=== PATIENT | female | born 1965 | race Two or more races ===

== ENCOUNTER 2023-07-17 10:37 | Outpatient (CLI) | payer OTHER ==
[2023-07-17] MEDS ORDERED: NORVASC2.5 M1 (13:54)
== END 2023-07-17 10:50 | disposition home or self-care (01) ==
LOC: RAD 10:37
PROVIDERS: ATTEND Obstetrics & Gynecology Gynecologic Oncology
DX: G89.3 Neoplasm related pain (acute) (chronic) (principal); R97.8 Other abnormal tumor markers; R97.0 Elevated carcinoembryonic antigen [CEA]; R97.1 Elevated cancer antigen 125 [CA 125]; Z01.818 Encounter for other preprocedural examination; C50.919 Malignant neoplasm of unspecified site of unspecified female breast; N85.02 Endometrial intraepithelial neoplasia [EIN]; N95.1 Menopausal and female climacteric states

== ENCOUNTER 2024-08-19 09:59 | Emergency (ER) | payer OTHER ==
[~2024-08-19] VITALS: Ht 160 cm; Wt 81.6 kg
[~2024-08-19 09:59] MED LIST: NORVASC2.5 M1
[2024-08-19] MEDS ORDERED: 0.9 % SODIUM CHLORIDE 1,000 ML IV STA (12:39)
[2024-08-19] MEDS ORDERED: ONDANSETRON HCL 2 MG/ML VIAL IV STA (12:39)
[2024-08-19] MEDS ORDERED: FAMOTIDINE/PF 20 MG in 0.9 % SODIUM CHLORIDE 8 ML IV PUSH STA (12:40)
[2024-08-19] MEDS ORDERED: ONDANSETRON HCL 2 MG/ML VIAL ONE (17:33)
[2024-08-19] MEDS ORDERED: FAMOTIDINE/PF 20 MG/2 ML VIAL ONE (17:34)
[2024-08-19 18:24] LABS: CREATININE SERUM 0.58 mg/dL (0.55-1.02); GFR 106.77; POTASSIUM 3.98 mEq/L (3.5-5.1)
[2024-08-19 19:50] LABS: BASO % 0.2 % (0.1-1.2); EOS % 0.2 % (0.7-7.0); HEMATOCRIT 42.7 % (34.1-44.9); HEMOGLOBIN 14.4 g/dL (11.2-15.7); LYMPH % 33.9 % (19.3-53.1); MEAN CORPUSCULAR HEMOGLOBIN 28.6 pg (25.6-32.2); MONO % 12.5 % (4.7-12.5); PLATELET COUNT 278 K/uL (163-369); RED BLOOD COUNT 5.03 M/uL (3.93-5.22)
[2024-08-19 20:08] LABS: PH,URINE 5.5 (5.0-8.0); URINE APPEARANCE Clear; URINE BILIRRUBIN Negative (NEGATIVE); URINE BLOOD Small; URINE COLOR Yellow; URINE GLUCOSE Negative (NEGATIVE); URINE LEUKOCYTE Trace; URINE NITRATE Negative; URINE PROTEIN 30 (NEGATIVE); URINE UROBILINOGEN 0.2 E.U./dl
[2024-08-19 20:11] LABS: URINE BACTERIA 529.9 uL (0.0-1933); URINE RBC 32.9 uL (0.0-20.8); URINE WBC 89.4 uL (0.0-23.2)
[2024-08-19 20:21] LABS: URINE CAST 1.17 uL (0.0-1.40); URINE KETONE 80 (NEGATIVE)
[2024-08-19] MEDS ORDERED: PEPCID AC20 MG PO (20:25)
[2024-08-19] MEDS ORDERED: DIPHENOXYLATE HCL/ATROPINE 1 UDTAB TABLET PO ONE (20:30)
== END 2024-08-19 21:45 | disposition home or self-care (01) ==
LOC: ER 09:59
PROVIDERS: Emergency Medicine
DX: K52.89 Other specified noninfective gastroenteritis and colitis (principal); R11.10 Vomiting, unspecified; R19.7 Diarrhea, unspecified; I10 Essential (primary) hypertension; Z88.2 Allergy status to sulfonamides